=== PATIENT | female | born 1975 | race Caucasian/White ===

== ENCOUNTER 2020-06-30 15:46 | Outpatient (CLI) | payer OTHER, SELFPAY ==
[2020-06-30 16:02] LABS: Basophils Percent Auto 0.5 % (0.2-1.2); Eosinophils Absolute Auto 0.1 K/mm3 (0-0.3); Eosinophils Percent Auto 1.9 % (0-4.4); Hematocrit 39.9 % (37.0-47.0); Hemoglobin 13.3 g/dL (12.0-15.0); Immature Granulocyte Absolute 0.03 K/mm3 (0.00-0.031); Immature Granulocyte Percent A 0.4 % (0-0.5); Lymphocytes Absolute Auto 2.37 K/mm3 (0.9-3.2); Lymphocytes Percent Auto 32.5 % (18.3-44.2); Mean Corpuscular HGB Conc 33.3 g/dl (32-36); Mean Corpuscular Hemoglobin 31.4 pg (26-34); Mean Corpuscular Volume 94.1 fl (80-100); Mean Platelet Volume 9.8 fl (7.4-10.4); Monocytes Absolute Auto 0.7 K/mm3 (0.1-0.6); Monocytes Percent Auto 9.6 % (2.6-8.5); Neutrophils Percent Auto 55.1 % (45.5-73.1); Platelet Count Result 249 k/mm3 (150-375); Red Blood Count 4.24 M/mm3 (4.2-5.4); Red Cell Distribution Width 12.9 % (11.5-14.5); White Blood Count 7.3 K/mm3 (4.5-10.0)
[2020-06-30 16:37] LABS: Alanine Aminotransferase 20 U/L (4-35); Albumin Level 4.3 g/dL (3.5-5.1); Alkaline Phosphatase 64 U/L (38-126); Anion Gap 5 mmol/L (8-16); Aspartate Amino Transferase 21 U/L (14-36); Bilirubin,Total 0.5 mg/dL (0.2-1.3); Blood Urea Nitrogen 15 mg/dL (7-17); Calcium 9.1 mg/dL (8.4-10.2); Carbon Dioxide 30 mmol/L (22-30); Chloride 102 mmol/L (98-107); Cholesterol 222 mg/dL (0-200); Estimated Glomerular Filt Rate > 60; Glucose 90 mg/dL (65-105); HDL Direct 85 mg/dL; Potassium 3.9 mmol/L (3.4-5.0); Sodium 137 mmol/L (137-145); Triglycerides 115 mg/dL (<150)
[2020-06-30 16:48] LABS: LDL Cholesterol Direct 108 mg/dL
== END 2020-06-30 15:47 | disposition home or self-care (01) ==
LOC: ANHLAB 15:48
PROVIDERS: PCP Internal Medicine; Visit Provider Nurse Practitioner
DX: Z13.228 Encounter for screening for other metabolic disorders (principal); I10 Essential (primary) hypertension; Z13.220 Encounter for screening for lipoid disorders
CPT/HCPCS: 36415; 80053; 80061; 85025

== ENCOUNTER 2020-09-02 10:18 | Outpatient (NON) | payer OTHER, SELFPAY ==
[2020-09-04 16:42] LABS: SARS-CoV-2 RNA PCR Negative
== END 2020-09-02 10:19 ==
LOC: ANHCOVIDDT 10:20
PROVIDERS: PCP Internal Medicine; Visit Provider Clinical Nurse Specialist
DX: Z20.828 Contact with and (suspected) exposure to other viral communicable diseases (principal)
CPT/HCPCS: 87635; C9803; U0003

== ENCOUNTER 2023-02-10 07:05 | Day surgery (SDC) | payer OTHER, SELFPAY ==
[2023-02-03 08:46] VITALS: BMI 29.2
--- NOTE | 2023-02-05 14:40 | P.HP_ITS ---
History of Present Illness History of Present Illness Consent: Risks, benefits, and alternatives have been discussed and questions answered. Patient agrees to proceed with procedure. Chief complaint: NEOPLASM SCREENING Narrative: Geraldine Meng is a 47 year old female With a family history of colon cancer, her father. She also has had polyps, 2 polyps which were tubular adenomas were removed 4 years ago. Review of Systems Review of Systems: All systems reviewed & are unremarkable except as noted in HPI and below PMFSH Past Medical History Medical History Anxiety HTN (hypertension) Migraine headache Miscarriage Vitamin deficiency Surgical History Surgical History History of appendectomy History of dilatation and curettage History of mandibular surgery Family History Family History Father Carcinoma of colon Social History Social History Smoking status: Never smoker Smoking end date: 10/13/95 Alcohol intake: current Alcohol use details: 1-2 times a week Substance use: never Substance use type: does not use Living arrangements: alone Spiritual care concerns: No Meds Home Medications and Allergies Home Medications Medication Instructions Recorded Confirmed Type alprazolam 0.25 mg tablet 0.25 mg PO DAILY PRN anxiety #30 06/15/20 02/10/23 Rx tabs sumatriptan succinate 100 mg See Rx Instructions PO .COMPLEX 07/04/20 02/10/23 History tablet (Imitrex) fluticasone propionate 50 2 spray intranasal DAILY #16 grams 06/21/21 02/10/23 Rx mcg/actuation nasal spray,suspension (Flonase Allergy Relief) bupropion HCl 300 mg 24 hr tablet, See Rx Instructions .Route 07/03/22 02/10/23 Rx extended release .COMPLEX #90 tabs hydrochlorothiazide 12.5 mg tablet See Rx Instructions .Route 07/03/22 02/10/23 Rx .COMPLEX #90 tabs lisinopril 10 mg tablet See Rx Instructions .Route 07/03/22 02/10/23 Rx .COMPLEX #90 tabs Allergies Allergy/AdvReac Type Severity Reaction Status Date / Time codeine Allergy Unknown Vomiting Verified 02/10/23 07:54 Exam Const: General: alert Orientation/consciousness: patient oriented x3 Resp: Auscultation: clear to auscultation bilaterally Cardio: Rhythm: regular rhythm GI: GI Palp: Yes Soft to palpation and No Tenderness to palpation present (GI) Neuro: General: patient oriented x3 Assessment and Plan Assessment and plan (1) Colon cancer screening: Code(s): Z12.11 - Encounter for screening for malignant neoplasm of colon Status: Acute Assessment and Plan: Colonoscopy with possible biopsy or polypectomy or cautery or injection of s ubstances.
[2023-02-10 07:25] VITALS: BP 128/104; PULSE 68; RESP 20; TEMP 37.2; O2SAT 99
--- NOTE | 2023-02-10 07:43 | P.PNAN_ITS ---
Anes - Initial Pre Proc Eval Procedure: Operation Date: 02/10/23 08:30 Proposed Procedures p Screening Colonoscopy - Isael Bro MD Date/Time: 02/10/23 07:43 Surgeon: Isael Bro MD Pre Op Diagnosis: NEOPLASM SCREENING Patient Data Age: 47 Gender: F Height: 1.75 m Weight: 90 kg Allergies Allergy/AdvReac Type Severity Reaction Status Date / Time codeine Allergy Unknown Vomiting Verified 02/03/23 08:45 Home Medications Medication Instructions Recorded Confirmed Type alprazolam 0.25 mg tablet 0.25 mg PO DAILY PRN anxiety #30 06/15/20 02/03/23 Rx tabs sumatriptan succinate 100 mg See Rx Instructions PO .COMPLEX 07/04/20 02/03/23 History tablet (Imitrex) fluticasone propionate 50 2 spray intranasal DAILY #16 grams 06/21/21 02/03/23 Rx mcg/actuation nasal spray,suspension (Flonase Allergy Relief) bupropion HCl 300 mg 24 hr tablet, See Rx Instructions .Route 07/03/22 02/03/23 Rx extended release .COMPLEX #90 tabs hydrochlorothiazide 12.5 mg tablet See Rx Instructions .Route 07/03/22 02/03/23 Rx .COMPLEX #90 tabs lisinopril 10 mg tablet See Rx Instructions .Route 07/03/22 02/03/23 Rx .COMPLEX #90 tabs Patient hx anesthesia problems: none Family hx anesthesia problems: other (slow to awaken) Results Review: All pre-operative results and documents have been reviewed as part of the pre- operative evaluation. [facility] Past Medical History Medical History Anxiety HTN (hypertension) Migraine headache Miscarriage Vitamin deficiency Surgical History Surgical History History of appendectomy History of dilatation and curettage History of mandibular surgery Family History Family History Father Carcinoma of colon Social History Social History (Updated 07/04/20 @ 08:52 by Rebecca Angel CMA) Smoking status: Never smoker Smoking end date: 10/13/95 Alcohol intake: current Alcohol use details: 1-2 times a week Substance use: never Substance use type: does not use Living arrangements: alone Spiritual care concerns: No Anes - Eval Final PreProcedure Day of Procedure 02/10/23 07:43 Patient weight: overweight Heart: regular rate and rhythm Lungs: clear to auscultation Airway: Mallampati scale class II Neurological: alert and oriented Last oral intake: >/= 8 hours ASA classification: II Emergent: no Anesthetic plan: proceed Anesthesia type and monitoring: general GIVS and standard monitoring Results Review: All pre-operative results and documents have been reviewed as part of the pre- operative evaluation. Informed Consent: The patient's anesthetic plan and its attendant risks and benefits were discussed with the patient/family/POA. Questions were solicited and answers provided to the satisfaction of the patient/family/POA.
[2023-02-10] MEDS: LACTATED RINGERS 1,000 ML 150 ML IV CONT (08:02)
[2023-02-10 08:45] VITALS: BP 118/68; PULSE 59; RESP 14; O2SAT 100
[2023-02-10 09:02] VITALS: BP 101/68; PULSE 61; RESP 18; O2SAT 100
[2023-02-10 09:05] VITALS: BP 109/74; PULSE 62; RESP 18; O2SAT 100
--- NOTE | 2023-02-10 09:38 | WPDANESPN ---
Anes - Prog Note Post-Op Date/Time: 02/10/23 09:38 Cardiovascular status: normal Respiratory status: normal Airway patency: baseline Mental status: baseline Post-Op hydration status: normal Vital Signs: Last Vital Signs Temp 37.2 C 02/10/23 07:25 Pulse 62 02/10/23 09:05 Resp 18 02/10/23 09:05 BP 109/74 02/10/23 09:05 Pulse Ox 100 02/10/23 09:05 O2 Del Method Room Air 02/10/23 09:05 Pain Score (VAS): 0 I/O: Intake & Output 02/09/23 02/10/23 02/10/23 23:59 07:59 15:59 Intake Total 400 Balance 400 Patient Feedback: Patient satisfied with anesthetic care.
== END 2023-02-10 09:25 | disposition home or self-care (01) ==
PROVIDERS: PCP Physician Assistant; Visit Provider Internal Medicine Gastroenterology
PROC: 0DJD8ZZ Inspection of Lower Intestinal Tract, Via Natural or Artificial Opening Endoscopic (ICD-10-PCS; CPT 45378; principal; 2023-02-10 08:30)
DX: Z12.11 Encounter for screening for malignant neoplasm of colon (principal)
CPT/HCPCS: 45378